=== PATIENT | female | born 1960 | race Caucasian/White ===

== ENCOUNTER 2021-09-16 16:58 | Emergency (ER) | payer BC ==
[2021-09-16 18:25] LABS: ANION GAP 9.9 mmol/L (5-15); CHLORIDE,CL 102 mmol/L (98-107); SODIUM,NA 139 mmol/L (136-145)
[2021-09-16] MEDS: Labetalol 100 MG/20 ML MDV IVPUSH ONE (19:15)
== END 2021-09-16 19:50 | disposition home or self-care (01) ==
LOC: KA.ED 16:58
DX: I16.0 Hypertensive urgency (principal); I10 Essential (primary) hypertension; Z88.5 Allergy status to narcotic agent; Z88.2 Allergy status to sulfonamides; Z79.899 Other long term (current) drug therapy
CPT/HCPCS: 36415; 80048; 81001; 84484; 85025; 93005; 93010; 96374; 99283-25; 99284; J3490